=== PATIENT | female | born 1945 | race Caucasian/White ===

== ENCOUNTER 2018-01-01 05:57 | Emergency (ER) | payer MEDICARE ==
[~2018-01-01] VITALS: Ht 157.5 cm; Wt 72.6 kg
[2018-01-01 07:27] LABS: BILIRUBIN, URINE NEGATIVE (NEGATIVE); COLOR,URINE PALE YELLOW; GLUCOSE, URINE (UA) NEGATIVE (NEGATIVE); KETONES,URINE NEGATIVE (NEGATIVE); LEUKOCYTE ESTERASE ,URINE NEGATIVE (NEGATIVE); NITRITE,URINE NEGATIVE (NEGATIVE); PH,URINE 5 (4.5-8.0); PROTEIN,URINE NEGATIVE (NEGATIVE); UROBILINOGEN,URINE NORMAL MG/DL (0.0-1.0)
[2018-01-01 07:31] VITALS: BP 134/57
[2018-01-01 07:33] LABS: EOSINOPHILS % (AUTO) 3.5 % (0.0-3.0); HEMATOCRIT 36.8 % (37.0-47.0); HEMOGLOBIN 12.3 G/DL (12.0-16.0); LYMPHOCYTES % (AUTO) 33.3 % (20.0-45.0); MEAN CORPUSCULAR VOLUME 82 FL (80-99); MONOCYTES % (AUTO) 7.5 % (1.0-10.0); NEUTROPHILS % (AUTO) 54.7 % (45.0-75.0); PLATELET COUNT 227 K/UL (150-450); RED BLOOD COUNT 4.49 M/UL (4.20-5.40); RED CELL DISTRIBUTION WIDTH 12.3 % (11.6-14.8); WHITE BLOOD COUNT 5.7 K/UL (4.8-10.8)
[2018-01-01 07:35] LABS: ANION GAP 8 mmol/L (5-15); BLOOD UREA NITROGEN 39 mg/dL (7-18); CALCIUM 8.8 MG/DL (8.5-10.1); CARBON DIOXIDE 27 MMOL/L (21-32); CHLORIDE 104 MMOL/L (98-107); CREATININE 1.3 MG/DL (0.55-1.30); POTASSIUM 4.3 MMOL/L (3.5-5.1); SODIUM 138 MMOL/L (136-145)
[2018-01-01 07:39] LABS: ALANINE AMINOTRANSFERASE 18 U/L (12-78); ALBUMIN 3.5 G/DL (3.4-5.0); ALBUMIN/GLOBULIN RATIO 0.9 (1.0-2.7); ALKALINE PHOSPHATASE 62 U/L (46-116); ASPARTATE AMINO TRANSFERASE 14 U/L (15-37); BILIRUBIN,TOTAL 0.2 MG/DL (0.2-1.0)
[2018-01-01 07:41] LABS: APPEARANCE,URINE CLEAR
[2018-01-01 07:51] LABS: CKMB 0.8 NG/ML (0.0-3.6)
--- NOTE | 2018-01-01 08:05 | Emergency Room Report ---
History of Present Illness General Chief Complaint: General Complaint Source: Patient Present Illness HPI 72-year-old female with history of hypertension, diabetes, and neuropathy, anxiety and depression, presents with dry mouth for the past few days, reports no other symptoms, and reports no change in her medication regimen for at least one year now. She denies vomiting, diarrhea, any pain complaints other than her chronic bilateral lower extremity neuropathy which is more of a numbness sensation, she denies any fevers, any other symptoms. Allergies: Coded Allergies: CODEINE (Verified Allergy, Intermediate, Hallucinations, 01/01/18) Patient History Past Medical History: see triage record Last Menstrual Period: maria esther : 4 Para: 4 Reviewed Nursing Documentation: PMH: Agreed; PSxH: Agreed Nursing Documentation-PMH Hx Diabetes: Yes Review of Systems All Other Systems: negative except mentioned in HPI Physical Exam Vital Signs Date Time Temp Pulse Resp B/P (MAP) Pulse Ox O2 Delivery O2 Flow Rate FiO2 01/01/18 05:59 98.1 71 16 134/57 98 Room Air 98.1 Sp02 EP Interpretation: reviewed, normal General Appearance: no apparent distress, alert, non-toxic Head: normocephalic Eyes: bilateral eye normal inspection, bilateral eye PERRL, bilateral eye EOMI ENT: normal ENT inspection, hearing grossly normal, normal pharynx, no angioedema, normal voice, dry mucus membranes - Slightly dry Neck: normal inspection, full range of motion, supple, supple/symm/no masses Respiratory: chest non-tender, lungs clear, normal breath sounds, chest symmetrical, palpation of chest normal Cardiovascular #1: normal peripheral pulses, regular rate, rhythm Cardiovascular #2: 2+ radial (R), 2+ radial (L) Gastrointestinal: normal inspection, non tender, soft, no mass, no guarding, no rebound Rectal: deferred Genitourinary: normal inspection, no CVA tenderness Musculoskeletal: back normal, gait/station normal, normal range of motion, non- tender, no calf tenderness Neurologic: alert, responsive, 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 She was given IVF. No evidence of dka, uti, lactic acidosis, or other severe metabolic derangement. Will dc with recs to increase PO hydration. EKG Diagnostic Results EKG Time: 07:18 EP Interpretation: no st-t changes, no TWI's Rate: normal Rhythm: NSR ST Segments: no acute changes Rhythm Strip Diag. Results Rhythm Strip Time: 08:04 EP Interpretation: yes Rate: 69 Rhythm: NSR, no PVC's, no ectopy Last Vital Signs Date Time Temp Pulse Resp B/P (MAP) Pulse Ox O2 Delivery O2 Flow Rate FiO2 01/01/18 07:31 98.0 68 11 134/57 100 Room Air 98.0 Disposition: HOME, SELF-CARE Condition: Stable Referrals: NOT CHOSEN ALIX/,REFERRING (PCP) FAITH BETHEA M.D Jan 01, 2018 08:05
[2018-01-01 09:28] VITALS: BP 155/65
--- NOTE | 2018-01-01 10:09 | Diagnostic Imaging Report ---
Indication: Dyspnea Comparison: None A single view chest radiograph was obtained. Findings: Cardiomediastinal appearance is within normal limits for age. The lungs are clear. Pulmonary vascularity is appropriate. The diaphragmatic contour is smooth and costophrenic angles are sharp. No pleural effusions are identified. The bones are osteopenic. Impression: No acute findings
--- NOTE | 2018-01-01 11:53 | Diagnostic Imaging Report ---
Indication: left hand pain. Findings: 3 views of the left hand were obtained. There is an acute fracture at the base of the first distal phalange of the thumb. The fracture appears to be transverse and the does not appear to be intra-articular. The bones are osteopenic. There is evidence of mild arthrosis involving several joints throughout the hand and wrist. IMPRESSION: Acute fracture of the first distal phalange
--- NOTE | 2018-01-03 12:06 | Cardiology Report ---
APPROVED REPORT EKG Measurement Heart [id number] Normal sinus rhythm Normal ECG
== END 2018-01-01 09:32 | disposition home or self-care (01) ==
LOC: EMR 06:25
DX: E86.0 Dehydration (principal); E11.40 Type 2 diabetes mellitus with diabetic neuropathy, unspecified; I10 Essential (primary) hypertension; F41.8 Other specified anxiety disorders
CPT/HCPCS: 36415; 71045; 80053; 81003; 82550; 82553; 82962; 83605; 83690; 84484; 85025; 93005; 96360; 99284